=== PATIENT | male | born 1955 ===

== ENCOUNTER 2018-02-20 01:41 | Inpatient (IN) | payer OTHER ==
[~2018-02-20] VITALS: Ht 177.8 cm; Wt 61.2 kg
--- NOTE | ~2018-02-20 | DS ---
[place], [place] DISCHARGE SUMMARY [id number] #: [id number] ROOM: 310 DOCTOR: PATRICIA FIELDS MD BIRTHDATE: [birth year] DOS: 02/27/2018 CHIEF COMPLAINT: "I have just been so depressed, I haven't been sleeping and I have been falling a lot." HISTORY OF PRESENT ILLNESS: This is a 62-year-old white male who is a resident of the [facility]. The patient apparently has been experiencing severe depression despite multiple antidepressants and psychotropics and maintenance ECT. He reports that he has been falling frequently as well, which has been problematic. A note from the family member that was sent with him indicates that he has voiced a feeling that there is an unforeseen force that is actually pushing him down and causing him to fall. He has had problems with both short and long-term memory for the past year. 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 He is admitted now to rule out any organic factors to stabilize on medication and to engage in individual and jones milieu activity. PAST MEDICAL HISTORY: Remarkable for bilateral cataract significant major depression, recurrent, hypertension, hyperlipidemia and dementia. SUMMARY OF HOSPITAL COURSE: The patient was admitted to the unit where his medication regimen was significantly altered. Ambien 10 mg at bedtime was discontinued. Xanax 0.5 mg 3 times a day was discontinued. Melatonin 5 mg at bedtime was discontinued. Trazodone 50 mg at bedtime was discontinued. Trintellix 5 mg a day was discontinued. Zoloft 100 mg a day was discontinued. Zyprexa which was given at a dose of 5 mg twice a day was changed to 10 mg at bedtime and subsequently increased to 20 mg at bedtime. Remeron which was at a starting dose of 60 mg a day was decreased to 15 mg a day to take advantage of its sedative effects at the lower doses. With these changes, the patient had a dramatic and significant improvement. With the addition of Rozerem 8 mg at bedtime, the patient slept soundly through the night. He did wake up initially with some morning somnolence, but this quickly passed. His gait improved, in fact, physical therapy did pass them on all aspects of gait stability. He convincingly reported that there were no longer delusions and he was feeling very comfortable with returning back to the [facility]. Appetite normalized as did sleep. He had improved sufficiently with these medication changes to be able to be returned back to the [facility]. He will have followup there by myself. MENTAL STATUS AT DISCHARGE: The patient is alert and oriented to person, place and very approximate to time. Mood was strongly trending towards euthymia. Affect is much more appropriate. There was no roseline or hypomania. There were no longer any delusions or paranoia. Short-term memory had some gaps, otherwise he was intact. FINAL DIAGNOSES: Major depression, recurrent with psychotic features and Alzheimer's dementia. [place], [place] DISCHARGE SUMMARY NAME: JUSTIN TINSLEY UNIT #: [id number] ROOM: 310 DOCTOR: PATRICIA FIELDS MD BIRTHDATE: [birth year] DISPOSITION: The patient is to return back to the [facility]. I will follow him upon his readmission there. Medically and psychiatrically he is stable. His biopsychosocial needs are being met by family and by the staff of the facility. PATRICIA FIELDS MD CM:DISCHARG 1006 PATRICIA FIELDS MD 02/27/18 1005 interface
--- NOTE | ~2018-02-20 | WRIGHTHP ---
[place], [place] PATIENT HISTORY AND PHYSICAL EXAM NAME: [id number] UNIT #: [id number] ROOM: 310 DOCTOR: PATRICIA FIELDS MD BIRTHDATE: [birth year] DOS: 02/21/2018 INITIAL PSYCHIATRIC EVALUATION CHIEF COMPLAINT: "I have just been depressed, I haven't been sleeping and I fall a lot." HISTORY OF PRESENT ILLNESS: This is a 62-year-old white male who is a resident of the [facility]. The patient apparently has been experiencing severe depression despite multiple antidepressants and psychotropics. He also reports that he falls frequently. A note from family member indicates that he has voiced a feeling that there is an unseen force that is actually pushing him down and causing him to fall. He also has noted that he has had problems with both short and long-term memory for the past year and these problems continue to persist and worsen. He is admitted now to rule out organic factors, to stabilize on medication, returning to the least restrictive environment when psychiatrically stable. PAST MEDICAL HISTORY: Remarkable for bilateral cataracts, depression, hypertension, hyperlipidemia and dementia. Most recently his medication regimen included Ambien 10 mg at bedtime, Xanax 0.5 mg 3 times a day, melatonin 5 mg at bedtime, Remeron 60 mg at bedtime, Zyprexa 5 mg b.i.d., trazodone 50 mg at bedtime, Trintellix 5 mg daily and Zoloft 100 mg daily. MENTAL STATUS: He is alert and oriented with time gaps. Mood does seem to be depressed. Affect is anxious and somewhat tremorous. He does admit to having some intrusive thoughts, but then was rather guarded and would not tell me much more. Short term memory has gaps. DIAGNOSIS: Major depression, recurrent, severe, with psychotic features. PLAN: I have already simplified his rather complicated drug regimen, discontinuing Ambien, Xanax, melatonin, trazodone, Trintellix and Zoloft. I have lowered the Remeron from 60 down to 15 to get maximum sedation at night and changed his Zyprexa from 5 mg b.i.d. to 10 mg at night to utilize this for more sedation. I will adjust these further, increasing the Zyprexa to 20 mg at night and adding Rozerem to attempt to improve his sleep. I will also add Exelon patch to begin to address some of his cognitive issues. We will engage in individual and jones milieu activity, returning to the least restrictive environment when psychiatrically stable. [place], [place] PATIENT HISTORY AND PHYSICAL EXAM NAME: JUSTIN TINSLEY UNIT #: [id number] ROOM: 310 DOCTOR: PATRICIA FIELDS MD BIRTHDATE: [birth year] PATRICIA FIELDS MD CM:HISPHYS:PATIENT HISTORY AND PHYSICAL EXAMINATION [id number] PATRICIA FIELDS MD 02/21/18 1057 interface
--- NOTE | ~2018-02-20 | PR ---
[place], [place] PROGRESS NOTE NAME: JUSTIN TINSLEY UNIT #: [id number] ROOM: 310 DOCTOR: LUCY AMEZCUA DO BIRTHDATE: [birth year] DOS: 02/26/2018 CHIEF COMPLAINT: "Breakfast was okay." SUMMARY OF VISIT: The patient was interviewed in the dining room after he had eaten breakfast. States that he slept a little bit better, reports that his mood is positive. He denies any dizziness, lightheadedness or tiredness or additional side effects from his medication changes. MENTAL STATUS: He is alert and oriented with some time gaps. His mood is trending towards euthymia. There are no symptoms of roseline or hypomania. He does not have any overt signs or symptoms of auditory or visual hallucinations. He is without delusions or paranoia. PLAN: We will continue his current psychiatric regimen and at this time and continue to monitor the patient to maximize the potential benefit. We will continue to monitor and engage the patient with group and with individual activities with the plan to return him to the least restrictive environment when psychiatrically stable. We will plan for a Friday discharge. LUCY AMEZCUA DO PATRICIA FIELDS MD CM:PNHUI [id number] LUCY AMEZCUA DO 02/26/18 1308 interface
--- NOTE | ~2018-02-20 | PR ---
[place], [place] PROGRESS NOTE NAME: JUSTIN TINSLEY UNIT #: [id number] ROOM: 310 DOCTOR: PATRICIA FIELDS MD BIRTHDATE: [birth year] DOS: 02/23/2018 CHIEF COMPLAINT: "I slept better, I think." SUMMARY OF THE VISIT: The patient was interviewed in the dining area where he was sitting with male peers, engaging in activity. He stopped and engaged in conversation with me. He did report that he slept much better last night and this is verified by nursing. He did wake up several times just to use the restroom, but fell back to sleep very quickly. He is still noting some morning somnolence, but it does tend to dissipate as the day goes on. He is willing to maintain his current medicines as they do seem to be helping and the only side effect that he notes is morning somnolence. MENTAL STATUS: He is alert and oriented with some time gaps. Mood does seem to be trending towards euthymia. Affect is more appropriate. There are no symptoms of roseline or hypomania. There are no overt auditory or visual hallucinations. No delusions, no paranoia. Short term memory has mild gaps, otherwise he is intact. PLAN: Valproic acid level was therapeutic at 66.8. I will maintain his current psychotropic regimen. I will consider increasing the Exelon as needed and as tolerated, may augment with Namenda. Maintain and monitor and support at this point. PATRICIA FIELDS MD CM:PNTRANS [id number] PATRICIA FIELDS MD 02/23/18 1042 interface
--- NOTE | ~2018-02-20 | PR ---
[place], [place] PROGRESS NOTE NAME: JUSTIN TINSLEY UNIT #: [id number] ROOM: 310 DOCTOR: PATRICIA FIELDS MD BIRTHDATE: [birth year] DOS: 02/22/2018 CHIEF COMPLAINT: "I think I feel better, I slept better." SUMMARY OF THE VISIT: The patient was interviewed in the dining area. He reports that he thinks he is already feeling better with the current medication regimen and did notice that he slept through the night. His only negative complaint was that he was feeling a little bit somnolent this morning. I encouraged him to see how this goes as the day progresses and that this somnolence should pass. He nodded in agreement. He did seem to be less perseverative and negative. He did report he ate well for breakfast. He denies any other side effects. MENTAL STATUS: He is alert and oriented with time gaps. Mood does seem to be trending towards euthymia. Affect is more appropriate. There is no roseline or hypomania. There are no delusions voiced or paranoia. Short-term memory has gaps. PLAN: I will go ahead and increase Exelon patch from 4.6 to 9.5 mg daily. Check a valproic acid level in the a.m. to ensure that it is therapeutic. Engage in individual and jones milieu activity, returning to the least restrictive environment when psychiatrically stable. PATRICIA FIELDS MD CM:PNTRANS 2 PATRICIA FIELDS MD 02/22/1802 interface
--- NOTE | ~2018-02-20 | PR ---
[place], [place] PROGRESS NOTE NAME: JUSTIN TINSLEY UNIT #: [id number] ROOM: 310 DOCTOR: LUCY AMEZCUA DO BIRTHDATE: [birth year] DOS: 02/24/2018 CHIEF COMPLAINT: "I'm tired." SUMMARY OF THE VISIT: The patient was interviewed in the dining area where he was sitting shortly after breakfast. He states that he did not sleep well but his mood is positive and getting better. States that he from the [facility] [place] but he did not like it there. States that he has difficulty going to sleep. MENTAL STATUS: He is alert and oriented with some time gaps. Mood seems to be trending towards euthymia with more appropriate affect. There are no symptoms of roseline or hypomania. There are no overt auditory or visual hallucinations without delusions or paranoia. His short term memory does have some gaps, otherwise he is intact. PLAN: We will discontinue his Depakote and start the Depakote ER 1500 mg at night. We will maintain his other psychotropic regimen. We will monitor the patient and encourage to involve him in group and individual activities with the plan to return to the least restrictive environment when psychiatrically stable. LUCY AMEZCUA DO PATRICIA FIELDS MD CM:PNTRANS 1135 LUCY AMEZCUA DO 02/24/18 1215 interface
--- NOTE | ~2018-02-20 | PR ---
[place], [place] PROGRESS NOTE NAME: JUSTIN TINSLEY UNIT #: [id number] ROOM: 310 DOCTOR: LUCY AMEZCUA DO BIRTHDATE: [birth year] DOS: 02/25/2018 CHIEF COMPLAINT: "I'm tired." SUMMARY OF VISIT: The patient was interviewed in the dining room area. He states that he did not sleep well. He reports that his mood is positive. He denies any dizziness, lightheadedness or tiredness or side effects from his recent medication changes. Staff report that he did sleep about approximately 7 hours. It was interrupted, however, as the patient got up to use the bathroom several times throughout the night. MENTAL STATUS: He is alert and oriented with some time gaps. Mood is trending towards euthymia. There are no symptoms of roseline or hypomania. There are no overt auditory or visual hallucinations and no delusions or paranoia. PLAN: We will increase his Exelon patch to 13.3 mg daily to maximize potential benefit. We will maintain his other current psychotropic regimen. We will monitor and engage the patient to group and individual activities with the plan to return to the least restrictive environment when psychiatrically stable. LUCY AMEZCUA DO PATRICIA FIELDS MD CM:PNTRANS [id number] LUCY AMEZCUA DO 02/25/18 1401 interface
[2018-02-20] MEDS ORDERED: TYLENOL325 M2 PO (05:39)
[2018-02-20] MEDS ORDERED: GENTLE LAXATIVE10 MG R (05:40)
[2018-02-20] MEDS ORDERED: ZOLPIDEM10 MG PO (05:41)
[2018-02-20] MEDS ORDERED: COLACE100 MG PO (05:41)
[2018-02-20] MEDS ORDERED: 'XANAX0.5 MG PO (05:42)
[2018-02-20] MEDS ORDERED: LIPITOR40 MG PO (05:43)
[2018-02-20] MEDS ORDERED: ASPIRIN CHEWABL81 MG PO (05:43)
[2018-02-20] MEDS ORDERED: AMANTADINE HCL100 M1 PO (05:43)
[2018-02-20] MEDS ORDERED: MASON NATURAL325 MG PO (05:44)
[2018-02-20] MEDS ORDERED: MELATONIN5 M6 PO (05:45)
[2018-02-20] MEDS ORDERED: HYDR25T PO (05:45)
[2018-02-20] MEDS ORDERED: REMERON30 M1 PO (05:46)
[2018-02-20] MEDS ORDERED: CENTRAVITES 501 EACH PO (05:47)
[2018-02-20] MEDS ORDERED: ZYPREXA5 M1 PO (05:47)
[2018-02-20] MEDS ORDERED: POTASSIUM CHLO20 ME3 PO (05:48)
[2018-02-20] MEDS ORDERED: MIRALAX17 GM PO (05:48)
[2018-02-20] MEDS ORDERED: PROTONIX40 MG PO (05:49)
[2018-02-20] MEDS ORDERED: TRAZODONE50 MG PO (05:50)
[2018-02-20] MEDS ORDERED: TRINTELLIX10 MG PO (05:51)
[2018-02-20] MEDS ORDERED: VITAMIN B-121000 MC2 PO (05:51)
[2018-02-20] MEDS ORDERED: VITAMIN D32000 UNI1 PO (05:52)
[2018-02-20] MEDS ORDERED: ZOLOFT100 MG PO (05:52)
[2018-02-20] MEDS ORDERED: NORVASC10 MG PO (09:11)
[2018-02-20 16:11] VITALS: BP 147/75
[2018-02-20 17:42] VITALS: BP 147/75
[2018-02-20 20:20] VITALS: BP 140/81
[2018-02-21 07:21] VITALS: BP 160/70
[2018-02-21 07:46] LABS: BASO % 0.5 % (0.0-1.0); EOS # 0.1 10*3/uL (0.0-0.4); EOS % 1.2 % (1.0-4.0); HEMATOCRIT 45.9 % (42.0-52.0); HEMOGLOBIN 15.3 g/dl (14.0-18.0); LYMPH # 0.9 10*3/uL (1.3-4.4); LYMPH % 14.8 % (27.0-41.0); MEAN CELL VOLUME 89.3 fl (80.0-94.0); MEAN CORPUSCULAR HGB 29.8 pg (27.0-31.0); MEAN CORPUSCULAR HGB CONC 33.3 g/dl (33.0-37.0); MEAN PLATELET VOLUME 9.3 fl (9.6-12.3); MONO # 0.5 10*3/uL (0.1-1.0); MONO % 7.9 % (3.0-9.0); NEUT # 4.5 10*3/uL (2.3-7.9); NEUT % 75.4 % (47.0-73.0); PLATELET COUNT AUTOMATED 184 10*3/uL (130-400); RED BLOOD COUNT 5.14 10*6/uL (4.50-5.90); RED CELL DISTRI WIDTH 12.4 % (0-14.5); WHITE BLOOD COUNT 5.9 10*3/uL (4.8-10.8)
[2018-02-21 08:12] LABS: ALBUMIN 3.8 gm/dl (3.1-4.5); BUN 12 mg/dl (7-24); CHLORIDE 105 mmol/L (98-107); CREATININE 0.68 mg/dL (0.70-1.30); POTASSIUM 3.5 mmol/L (3.5-5.1); SGOT/AST 15 IU/L (3-35); SGPT/ALT 18 U/L (12-78); SODIUM 142 mmol/L (136-145)
[2018-02-21 08:23] LABS: ALKALINE PHOSPHATASE 112 U/L (45-117); CHOLESTEROL 150 mg/dL (<200); HDL CHOLESTEROL 65 mg/dl (40-60); LDL CHOLESTEROL 72 mg/dL (9-159); TOTAL PROTEIN 7.3 gm/dL (6.4-8.2); TRIGLYCERIDES 67 mg/dl (<150); VLDL CHOLESTEROL 13 mg/dL (6-40)
[2018-02-21 08:26] LABS: VITAMIN D, 25-HYDROXY 61.4 ng/mL (30-100)
[2018-02-21 08:47] LABS: BILIRUBIN NEGATIVE (NEGATIVE); BLOOD NEGATIVE (NEGATIVE); CLARITY SL CLOUDY (CLEAR); COLOR YELLOW (YELLOW); GLUCOSE NEGATIVE (NEGATIVE); KETONE 1+ (NEGATIVE); LEUKO ESTERASE NEGATIVE (NEGATIVE); NITRITE NEGATIVE (NEGATIVE)
[2018-02-21 09:46] LABS: BACTERIA TRACE; CALCIUM OXALATE CRYSTALS 1+
[2018-02-21 09:48] VITALS: BP 142/72
[2018-02-21 19:32] VITALS: BP 161/74
[2018-02-22 07:22] VITALS: BP 142/60
[2018-02-22 19:42] VITALS: BP 122/68
[2018-02-23 07:53] VITALS: BP 159/82
[2018-02-23 20:24] VITALS: BP 158/80
[2018-02-24 08:00] VITALS: BP 135/72
[2018-02-24 19:36] VITALS: BP 130/67
[2018-02-25 09:14] VITALS: BP 131/62
[2018-02-25 20:08] VITALS: BP 140/76
[2018-02-26 08:41] VITALS: BP 140/63
[2018-02-26 20:00] VITALS: BP 125/68
[2018-02-27 07:58] VITALS: BP 136/81
[2018-02-27] MEDS ORDERED: MIRTAZAPINE15 M2 PO (09:14)
[2018-02-27] MEDS ORDERED: ROZEREM8 MG PO (09:14)
[2018-02-27] MEDS ORDERED: EXELON13.3 MG/21 T (09:14)
[2018-02-27] MEDS ORDERED: DIVALPROEX SOD500 M1 PO (09:14)
[2018-02-27] MEDS ORDERED: OLANZAPINE10 MG PO (09:14)
== END 2018-02-27 18:38 | DRG 56 ==
LOC: 3N 01:41
PROVIDERS: Psychiatry & Neurology Psychiatry
DX: G30.9 Alzheimer's disease, unspecified (principal); E43 Unspecified severe protein-calorie malnutrition; F02.80 Dementia in other diseases classified elsewhere, unspecified severity, without behavioral disturbance, psychotic disturbance, mood disturbance, and anxiety; F33.3 Major depressive disorder, recurrent, severe with psychotic symptoms; E78.5 Hyperlipidemia, unspecified; I10 Essential (primary) hypertension; Z98.42 Cataract extraction status, left eye; Z98.41 Cataract extraction status, right eye; Z79.82 Long term (current) use of aspirin; Z68.20 Body mass index [BMI] 20.0-20.9, adult